=== PATIENT | male | born 1980 | race Hispanic/Latino ===

== ENCOUNTER 2018-07-09 19:40 | Inpatient (IN) | payer OTHER ==
[2018-07-09 20:46] LABS: URINE BILIRUBIN NEGATIVE (NEGATIVE); URINE BLOOD NEGATIVE (NEGATIVE); URINE CLARITY Clear (Clear); URINE COLOR Yellow (YELLOW); URINE GLUCOSE (UA) NORMAL (Normal); URINE LEUKOCYTE ESTERASE NEG Leu/uL (Negative); URINE PROTEIN NEGATIVE (NEGATIVE); URINE UROBILINOGEN NORMAL mg/dL (0.2-1.0)
[2018-07-09 20:50] LABS: BASO % 0.5 % (0.0-2.0); EOS # 0.2 K/uL (0.0-0.7); EOS % 1.9 % (0.0-4.0); HEMOGLOBIN 15.9 g/dL (12.0-18.0); LYMPH # 1.8 K/uL (1.0-4.3); LYMPH % 17.1 % (20.0-40.0); MEAN CELL VOLUME 88.5 fL (80.0-94.0); MEAN CORPUSCULAR HEMOGLOBIN 31.4 pg (27.0-31.0); MEAN CORPUSCULAR HGB CONC 35.5 g/dL (33.0-37.0); MEAN PLATELET VOLUME 7.2 fL (7.2-11.7); MONO # 1.3 K/uL (0.0-0.8); MONO % 12.5 % (0.0-10.0); NEUT # 7.1 K/uL (1.8-7.0); NRBC % 0.1 % (0.0-2.0); RBC 5.05 Mil/uL (4.40-5.90); RED CELL DISTRIBUTION WIDTH 12.9 % (11.5-14.5); WHITE BLOOD COUNT 10.5 K/uL (4.8-10.8)
[2018-07-09 20:59] LABS: BARBITURATES, UR NEGATIVE (NEGATIVE); BENZODIAZEPINES, UR NEGATIVE (NEGATIVE); OPIATES, UR NEGATIVE (NEGATIVE); PHENCYCLIDINE, UR NEGATIVE (NEGATIVE)
--- NOTE | 2018-07-09 21:02 | C.PDOC ---
History Of Present Illness 38 year old male presents to the ED requesting detox from klonipin and xanax. Patient reports his last use of the substances was this morning. Patient denies SI/Hi, hallucinations, other drug use. Chief Complaint (Nursing): Psychiatric Evaluation History Per: Patient History/Exam Limitations: no limitations Onset/Duration Of Symptoms: Hrs Current Symptoms Are (Timing): Still Present Suicide/Self Injury Attempted (Context): None Modifying Factor(s): Other Associated Symptoms: denies: Depression, Suicidal Thoughts, Suicidal Plan Recent travel outside of the [place]: No Additional History Per: Patient, EMS Past Medical History Reviewed: Historical Data, Nursing Documentation, Vital Signs Vital Signs: Last Vital Signs Temp 98.5 F 07/09/18 19:50 Pulse 94 H 07/09/18 19:50 Resp 17 07/09/18 19:50 BP 146/97 H 07/09/18 19:50 Pulse Ox 100 07/09/18 19:50 - Medical History PMH: HTN Surgical History: No Surg Hx Family History: States: Unknown Family Hx - Social History Hx Alcohol Use: No Hx Substance Use: Yes - Immunization History Hx Tetanus Toxoid Vaccination: Yes Hx Influenza Vaccination: Yes Hx Pneumococcal Vaccination: No Review Of Systems Constitutional: Negative for: Fever, Chills Cardiovascular: Negative for: Chest Pain Respiratory: Negative for: Shortness of Breath Gastrointestinal: Negative for: Nausea, Vomiting, Abdominal Pain Psych: Negative for: Depression, Suicidal ideation Physical Exam - Physical Exam Appears: Non-toxic, No Acute Distress Skin: Normal Color, Warm, Dry Head: Atraumatic, Normacephalic Eye(s): bilateral: Normal Inspection Neck: Normal ROM, Supple Chest: Symmetrical Cardiovascular: Rhythm Regular Respiratory: Normal Breath Sounds, No Rales, No Rhonchi, No Wheezing Gastrointestinal/Abdominal: Soft, No Tenderness, No Guarding, No Rebound Extremity: Normal ROM, No Tenderness, No Swelling Neurological/Psych: Oriented x3, Normal Speech, Normal Cognition Gait: Steady ED Course And Treatment - Laboratory Results Result Diagrams: 07/09/18 20:26 07/09/18 20:54 O2 Sat by Pulse Oximetry: 100 (ON RA) Pulse Ox Interpretation: Normal Medical Decision Making Medical Decision Making: Plan: * Labs * Crisis eval * UA Disposition Discussed With : Denia Gimenez Doctor Will See Patient In The: Hospital Counseled Patient/Family Regarding: Diagnosis - Disposition Disposition: HOSPITALIZED Disposition Time: 22:41 Condition: STABLE Forms: [facility] (Colombian) - POA Present On Arrival: None - Clinical Impression Clinical Impression: Substance abuse, Bipolar disorder - Scribe Statement The provider has reviewed the documentation as recorded by the Scribe Robin Potter All medical record entries made by the Scribe were at my direction and personally dictated by me. I have reviewed the chart and agree that the record accurately reflects my personal performance of the history, physical exam, medical decision making, and the department course for this patient. I have also personally directed, reviewed, and agree with the discharge instructions and disposition.
[2018-07-09 21:18] LABS: ALB/GLOB RATIO 1.5 (1.0-2.1); ALBUMIN 4.9 g/dL (3.5-5.0); ALT/SGPT 18 U/L (21-72); AST/SGOT 20 U/L (17-59); BLOOD UREA NITROGEN 24 mg/dL (9-20); CALCIUM 10.2 mg/dl (8.6-10.4); GFR NON-AFRICAN AMERICAN > 60
[2018-07-09] MEDS ORDERED: Potassium Chloride 20 mEq/15 ml LIQ UD PO STA (22:17)
[2018-07-09] MEDS ORDERED: Potassium Chloride 20 mEq/15 ml LIQ UD ONE (22:28)
--- NOTE | 2018-07-09 23:12 | PCM.BM ---
<Boubacar Mtz - Last Filed: 07/09/18 23:11> Treatment Plan Problems - Problems identified on initial assessmt potential for benzo withdrawal Date Initiated: 07/09/18 Time Initiated: 23:11 Status: Active Treatment assets and liabiliti Patient Assests: cooperative, cognitively intact Patient Liabilities: substance abuse, medical problems - Milieu Protocol Maintain good personal hygiene: daily Encourage regular showers, daily Remind patient to perform daily oral care, daily Assist patient to perform ADL's Conduct patient checks and document Observation sheet: Q15 minutes Maintain personal safety: every shift Educate patient to report safety concerns to staff, every shift Monitor environment for contraband/sharps Medication safety: Monitor for expected outcome, potential side effects: every shift, Assess barriers to learning: every shift, Assess readiness for medication education: every shift <Linh Robles - Last Filed: 07/22/18 18:34> - Diagnosis (1) Sedative, hypnotic or anxiolytic use disorder, severe, dependence Status: Acute Interventions: 07/10/18 18:34 * Assess 7x/week regarding severity of withdrawal * Educate regarding risks, benefits, side effects and alternatives of medications * Use Motivational Interviewing for abstinence * Use CBT for relapse prevention * Medication management for withdrawal symptoms * Encourage medication assisted treatment *
[2018-07-10] MEDS: Multiple Vitamins Tab PO SCH (17:15)
--- NOTE | 2018-07-10 18:00 | PCM.PSYCH ---
Initial Psychiatric Evaluation - Initial Psychiatric Evaluation Type of Admission: Voluntary Legal Status: Capacity Chief Complaint (in patient's own words): I need help for my substance use. History of Present Illness and Precipitating Events: Patient is a 38 years old, single, unemployed, male with no previous psychiatric history who was admitted due to withdrawing from benzos, stimulant and cocaine. Klonopin: He started using Klonopin which is his drug of choice at 20 years of age, 5-6 mg daily. According to him he was taking more in the past. His last use of Klonopin was 1 day before. Adderall: He started using Adderall 2 years ago, daily, 5 pills each of 30 mg. His last use reported 1 week ago. Cocaine: His last use was 6 days ago, starting. He was guarded about further details of cocaine. He also has history of heroin use in the past. Last use 10 years ago. He quit smoking cigarettes in 2006. According to patient he was in detention multiple times for charges of stealing and drug related. He was on probation until last year. He was born in [place] and has high school graduation. His last job was 1 year ago in [employer]. He is not working for last 1 year, lives with his boyfriend. He was never and has no children. His height is 6 feet and 3 inches and weight is 198 pounds. Current Medications: Active Medications Generic Name Dose Route Start Last Admin Trade Name Freq PRN Reason Stop Dose Admin Chlordiazepoxide 25 mg 07/10/18 00:08 07/10/18 10:18 Librium PO 25 mg Q6 PRN Administration Withdrawal Symptoms Chlordiazepoxide 0 mg 07/10/18 18:00 Librium PO 07/14/18 17:59 Q6 MICHEAL Taper Chlordiazepoxide 25 mg 07/10/18 16:53 Librium PO Q4H PRN Alcohol Withdrawal Clonidine HCl 0.1 mg 07/10/18 00:11 07/10/18 00:33 Catapres PO 0.1 mg Q8H PRN Administration Withdrawal Symptoms Folic Acid 1 mg 07/10/18 17:00 Folic Acid PO DAILY MICHEAL Hydroxyzine HCl 25 mg 07/10/18 00:11 07/10/18 00:33 Atarax PO 25 mg Q6H PRN Administration Anxiety Multivitamins 1 tab 07/10/18 17:00 Hexavitamin PO DAILY MICHEAL Thiamine HCl 100 mg 07/10/18 17:00 Vitamin B1 Tab PO DAILY MICHEAL Trazodone HCl 50 mg 07/10/18 00:10 07/10/18 00:32 Desyrel PO 50 mg HS PRN Administration Insomnia Past Psychiatric History - Past Psychiatric History Pertinent Medical Hx (Current Medical&Sleep Prob, Allergies): Allergies Allergy/AdvReac Type Severity Reaction Status Date / Time No Known Allergies Allergy Unverified 07/09/18 19:53 Chlorthalidone [Hygroton] 25 mg PO DAILY 07/09/18 Quetiapine Fumarate [Seroquel] 25 mg PO HS 07/09/18 Review of Systems - Psychiatric Psychiatric: As Per [facility] Mental Status Examination - Personal Presentation Personal Presentation: Looks stated age - Affect Affect: Other (Anxious) - Motor Activity Motor Activity: Calm - Reliability in Providing Information Reliability in Providing Information: Fair - Speech Speech: Organized - Mood Mood: Anxious - Formal Thought Process Formal Thought Process: No Impairment - Hallucinations/Delusions Hallucinations: Other (None reported) Delusions: Other - Obsessions/Compulsions Obsessions: None Compulsions: None - Cognitive Functions Orientation: Person, Place, Situation, Time Sensorium: Alert Attention/Concentration: Attentive Abstract Thinking: [place] Estimate of Intelligence: Average Judgement: Intact, as evidence by: Insight regarding need for hospitalization Memory: Recent intact, as evidence by: Ability to recall events of the day, Remote intact, as evidenced by: Ability to recall historical events - Risk Risk: Withdrawal, Diminished functioning - Strength & Assets Inventory Strength & Assets Inventory: Cooperative - Limitations Limitations: Other (Lives with friend) DSM 5 DX - DSM 5 DSM 5 Diagnosis: Anxiolytic use disorder severe. Stimulant use disorder severe. - Recommended/Plan of Treatment Treatment Recommendations and Plan of Treatment: Patient/staff education. Supportive therapy. CBT for relapse prevention. ND for abstinence. We will start Librium taper for Klonopin and other substance use withdrawal. Other as needed medications. Patient wants to go to IOP for follow-up care after discharge from the hospital. Will discuss with the social and political studies professor to find a proper IOP for the patient. Projected ELOS: 4-5 days - Smoking Cessation Smoking Cessation Initiated: No Reason for not providing: Patient does not smoke cigarettes
[2018-07-11] MEDS: Multiple Vitamins Tab PO SCH (09:54)
--- NOTE | 2018-07-11 18:23 | PCM.PYCHPN ---
Psychiatric Progress Note - Psychiatric Progress Note Patient seen today, length of contact: 15 minutes Patient Chief Complaint: I am feeling little better with the treatment. Problems Identified/Issues Discussed: atient seen, chart reviewed, case discussed with the staff. Issues related to illness and treatment were discussed with the patient and staff. Reported compliant with treatment with no adverse affects. Tolerating treatment very well. Patient reported feeling better. Staff also confirmed the above. Patient was calm and cooperative. Awake, alert and oriented 3. No psychomotor activity, good eye contact, memory intact. Aftercare discussed with the patient. Denied any delusions, auditory or visual hallucinations, suicidal ideations or homicidal ideations at the time of evaluation. Medical Problems: IBD Diagnostic Results: Reviewed DSM 5 Symptoms Update: Some improvement with treatment. Medication Change: No Medical Record Reviewed: Yes Mental Status Examination - Cognitive Function Orientation: Person, Place, Situation, Time Memory: Intact Attention: WNL Concentration: WNL Association: [facility] Fund of Knowledge: [facility] Decription of patient's judgement and insights: Fair - Mood Mood: Anxious - Affect Affect: Other (Appropriate) - Speech Speech: Appropriate - Formal Thought Process Formal Thought Process: No Impairment Psychotic Thoughts and Behaviors: None - Suicidal Ideation Suicidal Ideation: No - Homicidal Ideation Homicidal Ideation: No Goal/Treatment Plan - Goal/Treatment Plan Need for Continued Stay: Remain at risks for inpatient hospitalization, Discharge may exacerbated symptoms, Severe functional impairment Progress Toward Problem(s) and Goals/Treatment Plan: Patient/staff education. Supportive therapy. CBT for relapse prevention. DC for abstinence. Continue treatment as before. Estimated Date of D/C: 07/14/18 - Smoking Cessation Smoking Cessation Initiated: No Reason for not providing: Patient does not smoke cigarettes
[2018-07-12] MEDS: Multiple Vitamins Tab PO SCH (09:38)
[2018-07-13] MEDS: Multiple Vitamins Tab PO SCH (11:08)
--- NOTE | 2018-07-13 21:20 | PCM.PYCHPN ---
Psychiatric Progress Note - Psychiatric Progress Note Patient seen today, length of contact: 15 minutes Patient Chief Complaint: THO ANXIOUS Problems Identified/Issues Discussed: PT SEEN ANDC EXAMINED D/W TEAM D/W PT AFTERCARE OPTIONS AND SUPPORTIVE ENVIRONMENT Medical Problems: NOTHING ACUTE Diagnostic Results: REVIWED DSM 5 Symptoms Update: TAPER OF BENZO Medication Change: Yes (TAPER OF BENZOS) Medical Record Reviewed: Yes Mental Status Examination - Cognitive Function Orientation: Person, Place, Situation, Time Memory: Intact Attention: WNL Concentration: WNL Association: WNL Fund of Knowledge: WNL - Mood Mood: Anxious - Affect Affect: Constricted, Other (Appropriate) - Speech Speech: Appropriate - Formal Thought Process Formal Thought Process: No Impairment Goal/Treatment Plan - Goal/Treatment Plan Need for Continued Stay: Remain at risks for inpatient hospitalization, Discharge may exacerbated symptoms, Severe functional impairment Progress Toward Problem(s) and Goals/Treatment Plan: SEDATIVE HYPNOTIC WITHDRAW: LIBRIUM SEDATIVE HYPNOTIC USE DISORDER [place] CBT SUPPORTIVE PSYCHOTYERAPY Estimated Date of D/C: 07/14/18 - Smoking Cessation Smoking Cessation Initiated: Yes
--- NOTE | 2018-07-13 21:26 | PCM.PYCHPN ---
Psychiatric Progress Note - Psychiatric Progress Note Patient seen today, length of contact: 15 minutes Patient Chief Complaint: I STILL HYAVE TROUBLE SLEEPING Problems Identified/Issues Discussed: PT SEEN AND EXAMINED D/W TEAM D/W P;OST ACUTE WITHDRAWAL SYNDROME Medical Problems: NOTHING ACUTE Diagnostic Results: REVIEWED Medication Change: Yes (TAPER OF BENZOS) Medical Record Reviewed: Yes Mental Status Examination - Cognitive Function Orientation: Person, Place, Situation, Time Memory: Intact Attention: WNL Concentration: WNL Association: WNL - Mood Mood: Anxious - Affect Affect: Constricted, Other (Appropriate) - Speech Speech: Appropriate - Formal Thought Process Formal Thought Process: No Impairment - Suicidal Ideation Suicidal Ideation: No - Homicidal Ideation Homicidal Ideation: No Goal/Treatment Plan - Goal/Treatment Plan Need for Continued Stay: Remain at risks for inpatient hospitalization, Discharge may exacerbated symptoms, Severe functional impairment Progress Toward Problem(s) and Goals/Treatment Plan: SEDATIVE HYPNOTIC WITHDRAW: LIBRIUM TAPER SEDATIVE HYPNOTIC USE DISORDER [place] CBT SUPPORTIVE PSYCHOEDUCATION PSYCHOTHERAPY Estimated Date of D/C: 07/14/18
--- NOTE | 2018-07-14 08:40 | PCM.PYCHDC ---
Mental Status Examination - Mental Status Examination Orientation: Person, Place, Situation, Time Memory: Intact Mood: Anxious Affect: Constricted Speech: Appropriate Attention: WNL Concentration: WNL Association: WNL Fund of Knowledge: WNL Formal Thought Process: No Impairment Suicidal Ideation: No Current Homicidal Ideation?: No Discharge Summary - Discharge Note Reason for Hospitalization: Benzo detox Consultations:: List each consultation separately and include: 1. Reason for request. 2. Findings. 3. Follow-up Summary of Hospital Course include:: 1. Description of specific treatment plan utilized for patients during their course of treatmen. 2. Summarize the time- course for resolution of acute symptoms and/or regressed behaviors. 3. Describe issues identified and worked on during hospitalization. 4. Describe medication utilized. 5. Describe medical problems identified and treated. 6. Reassessment of suicide risk Summary of Hospital Course: The pt was admitted and started on treatment with psychotherapy, support, psychoeducation and medications. ME and CBT used. The pt attended groups and activities, as well as milieu therapy. All the risks and benefits of medications are discussed and the patient understood and agreed. The pt improved with the treatments provided. After care discussed with the patient. He will go to Health system. - Final Diagnosis (DSM 5) Condition upon Discharge: STABLE DSM 5: Sedative hypnotic or anxiolytic withdrawal Sedative hypnotic or anxiolytic use d/o - severe Stimulant use d/o - severe Disposition: HOME/ ROUTINE Follow-up Treatment Plan: Continue below medications after discharge. Follow after care plan as discussed. Use relapse prevention skills Return to ER or call 911 if suicidal, homicidal or symptoms relapse. Stay away from stress, alcohol and drugs. See primary doctor regularly and get labs. Prescriptions/Medication Reconciliation: hydrOXYzine HCl [Atarax] 25 mg PO BID PRN #30 tab PRN Reason: Anxiety traZODone [Desyrel] 50 mg PO HS PRN #30 tab PRN Reason: Insomnia
[2018-07-14] MEDS: Multiple Vitamins Tab PO SCH (09:39)
[2018-07-14 10:10] VITALS: BP 122/71; PULSE 65; RESP 18; TEMP 97.7; O2SAT 100
== END 2018-07-14 12:30 | disposition home or self-care (01) | DRG 772 ==
LOC: C.ER 19:40 → C.7D 22:43
PROVIDERS: ADMIT Psychiatry & Neurology Psychiatry; ATTEND Psychiatry & Neurology Psychiatry
PROC: HZ2ZZZZ Detoxification Services for Substance Abuse Treatment (ICD-10-PCS; principal; 2018-07-09)
PROC: HZ56ZZZ Individual Psychotherapy for Substance Abuse Treatment, Psychoeducation (ICD-10-PCS; 2018-07-09)
PROC: GZ3ZZZZ Medication Management (ICD-10-PCS; 2018-07-09)
PROC: HZ89ZZZ Medication Management for Substance Abuse Treatment, Other Replacement Medication (ICD-10-PCS; 2018-07-09)
PROC: HZ59ZZZ Individual Psychotherapy for Substance Abuse Treatment, Supportive (ICD-10-PCS; 2018-07-09)
DX: F13.230 Sedative, hypnotic or anxiolytic dependence with withdrawal, uncomplicated (principal); F31.9 Bipolar disorder, unspecified; I10 Essential (primary) hypertension; F15.23 Other stimulant dependence with withdrawal; F14.90 Cocaine use, unspecified, uncomplicated; Z87.891 Personal history of nicotine dependence